=== PATIENT | female | born 1950 | race Caucasian/White ===

== ENCOUNTER 2022-03-31 10:29 | Emergency (ER) | payer MEDICARE, OTHER ==
[2022-03-31 10:39] VITALS: BP 130/64; PULSE 79
== END 2022-03-31 11:33 | disposition home or self-care (01) ==
LOC: VM.ED 10:29
DX: S60.212A Contusion of left wrist, initial encounter (principal); Z79.899 Other long term (current) drug therapy; W00.9XXA Unspecified fall due to ice and snow, initial encounter
CPT/HCPCS: 73110-LT; 99283